=== PATIENT | male | born 1960 ===

== ENCOUNTER 2016-11-04 20:44 | Emergency (ER) | payer MEDICARE ==
[2016-11-04 20:44] VITALS: BMI 27.6
[2016-11-04 20:48] VITALS: BP 124/82; PULSE 98; RESP 18; TEMP 98; O2SAT 100
--- NOTE | 2016-11-04 21:22 | ED PDOC ---
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 Pt admits to drinking 7 beers and vodka. Offers no active complaints. No suicidal or homicidal ideation. Past Medical History Reviewed: Historical Data, Nursing Documentation, Vital Signs Vital Signs: Last Vital Signs Temp 98 F 11/04/16 20:46 Pulse 98 H 11/04/16 20:46 Resp 18 11/04/16 20:46 BP 124/82 11/04/16 20:46 Pulse Ox 100 11/04/16 20:46 - Medical History PMH: Anxiety (ABOUT VISION), Gastritis - Family History Family History: States: Unknown Family Hx - Home Medications Home Medications: Ambulatory Orders Medication Instructions Recorded No Known Home Med 09/17/15 - Allergies Allergies/Adverse Reactions: Allergies Allergy/AdvReac Type Severity Reaction Status Date / Time No Known Allergies Allergy Verified 09/17/15 12:00 Review of Systems ROS Statement: Except As Marked, All Systems Reviewed And Found Negative Eyes: Positive for: Other (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 Negative for: Suicidal ideation Physical Exam - Reviewed Nursing Documentation Reviewed: Yes Vital Signs Reviewed: Yes - Physical Exam Appears: Positive for: Well, Non-toxic, No Acute Distress Head Exam: Positive for: ATRAUMATIC, NORMAL INSPECTION, NORMOCEPHALIC Skin: Positive for: Normal Color, Warm Eye Exam: Negative for: Normal appearance (constricted, s/p surgery) ENT: Positive for: Normal ENT Inspection Neck: Positive for: Normal Cardiovascular/Chest: Positive for: Regular Rate, Rhythm Respiratory: Positive for: Normal Breath Sounds Neurologic/Psych: Positive for: Alert, Oriented, Gait (unsteady). Negative for : Motor/Sensory Deficits - ECG O2 Sat by Pulse Oximetry: 100 (RA) Pulse Ox Interpretation: Normal Medical Decision Making Medical Decision Making: Time: 2054 Impression: alcohol ingestion Plan: -- Observation for clinical sobriety -- Alcohol serum Reassess Scribe Attestation: Documented by Nataly Simon acting as a scribe for Brayan Barnes MD. Provider Attestation: All medical record entries made by the Scribe were at my direction and personally dictated by me. I have reviewed the chart and agree that the record accurately reflects my personal performance of the history, physical exam, medical decision making, and the department course for this patient. I have also personally directed, reviewed, and agree with the discharge instructions and disposition. ED OBSERVATION Date of observation admission: 11/04/16 Time of observation admission: 21:19 - Observation admission statement Patient is being placed in observation because:: Pt intoxicated - Goals of Observation Goals of observation are:: Awaiting clinical sobriety - Progress Note Progress Note: 11/04/16 21:41 Pt is alert and oriented x 3 with steady gait. Appears sober, ready for d/c home. Disposition - Clinical Impression Clinical Impression: Alcohol abuse - Disposition Referrals: Alcoholics Anonymous [Outside] Disposition Time: 21:19 Condition: STABLE Instructions: Abuse of Alcohol (ED)
== END 2016-11-04 21:43 | disposition home or self-care (01) ==
LOC: H.ER 20:44
DX: F10.10 Alcohol abuse, uncomplicated (principal)

== ENCOUNTER 2017-06-05 03:03 | Emergency (ER) | payer MEDICARE, OTHER ==
[2017-06-05 03:03] VITALS: BMI 27.6
[2017-06-05 03:19] VITALS: BP 131/77; PULSE 98; RESP 18; TEMP 98; O2SAT 100
[2017-06-05] MEDS ORDERED: Artificial Tears Opht Soln OU STA (03:22)
--- NOTE | 2017-06-05 03:46 | ED PDOC ---
HPI: Eye Injury/Pain Time Seen by Provider: 06/05/17 03:08 Chief Complaint (Nursing): Eye Problem Chief Complaint (Provider): Med Refill History Per: Patient History/Exam Limitations: no limitations Additional Complaint(s): Baldev is a 56 y/o male under arrest who was brought to the ED for medical clearance. Patient states he doesn't have access to his Visine which he needs due to cataract surgery in November of last year. He denies vision changes or any other complaints. PMD: None Provided Past Medical History Reviewed: Historical Data, Nursing Documentation, Vital Signs Vital Signs: Last Vital Signs Temp 98.0 F 06/05/17 03:08 Pulse 98 H 06/05/17 03:08 Resp 18 06/05/17 03:08 BP 131/77 06/05/17 03:08 Pulse Ox 100 06/05/17 03:08 - Medical History PMH: Anxiety (ABOUT VISION), Gastritis - Surgical History Other surgeries: Cataract surgery - Family History Family History: States: Unknown Family Hx - Home Medications Home Medications: Ambulatory Orders Medication Instructions Recorded No Known Home Med 09/17/15 - Allergies Allergies/Adverse Reactions: Allergies Allergy/AdvReac Type Severity Reaction Status Date / Time No Known Allergies Allergy Verified 09/17/15 12:00 Review of Systems ROS Statement: Except As Marked, All Systems Reviewed And Found Negative Eyes: Positive for: Other (out of visine). Negative for: Vision Change Physical Exam - Reviewed Nursing Documentation Reviewed: Yes Vital Signs Reviewed: Yes - Physical Exam Appears: Positive for: Well, Non-toxic, No Acute Distress Eye Exam: Positive for: Normal appearance, EOMI, PERRL, Conjunctival injection Extremity: Positive for: Normal ROM Neurologic/Psych: Positive for: Alert, Oriented - ECG O2 Sat by Pulse Oximetry: 100 (RA) Pulse Ox Interpretation: Normal Medical Decision Making Medical Decision Making: Time: 3:22 Initial Impression: Dry Eye Initial Plan: --Artificial Tears --Patient is stable and medically cleared for incarceration. Scribe Attestation: Documented by Faizan Kelly, acting as a scribe for Dr. Brayan Barnes MD Provider Scribe Attestation: All medical record entries made by the Scribe were at my direction and personally dictated by me. I have reviewed the chart and agree that the record accurately reflects my personal performance of the history, physical exam, medical decision making, and the department course for this patient. I have also personally directed, reviewed, and agree with the discharge instructions and disposition. Disposition - Clinical Impression Clinical Impression: Dry eye - Patient ED Disposition Is Patient to be Admitted: No Counseled Patient/Family Regarding: Studies Performed, Diagnosis, Rx Given - Disposition Referrals: [facility] [Outside] Roger Chatterjee MD [Staff Provider] - Disposition Time: 03:22 Condition: STABLE Additional Instructions: Patient is medically and psychiatrically cleared for incarceration. Instructions: Eye Lubricant (Into the eye) Forms: [facility] (Welsh)
== END 2017-06-05 05:18 ==
LOC: H.ER 03:03
DX: Z76.0 Encounter for issue of repeat prescription; F41.9 Anxiety disorder, unspecified; H04.129 Dry eye syndrome of unspecified lacrimal gland

== ENCOUNTER 2017-07-10 20:59 | Emergency (ER) | payer MEDICARE, OTHER ==
[2017-07-10 20:59] VITALS: BMI 27.6
[2017-07-10 21:05] VITALS: BP 140/84; PULSE 95; RESP 16; TEMP 98.4
[2017-07-10 21:23] VITALS: O2SAT 100
--- NOTE | 2017-07-10 21:59 | ED PDOC ---
HPI: Psych/Substance Abuse Time Seen by Provider: 07/10/17 21:11 Chief Complaint (Nursing): Alcohol Ingestion Chief Complaint (Provider): Alcohol Ingestion History Per: Patient History/Exam Limitations: no limitations Suicide/Self Injury Attempted (Context): None Modifying Factor(s): Alcohol Additional Complaint(s): 56 year old male brought in by EMS presents to ED for alcohol intoxication and has a history of alcohol abuse. Patient confirms he has had 10-15 alcoholic drinks since this morning. Denies drug abuse. Confirms that he feels intoxicated but denies having any complaints at this time. (-) chest pain or SOB. PCP: [facility] Past Medical History Reviewed: Historical Data, Nursing Documentation, Vital Signs Vital Signs: Last Vital Signs Temp 98.4 F 07/10/17 21:00 Pulse 95 H 07/10/17 21:00 Resp 16 07/10/17 21:00 BP 140/84 07/10/17 21:00 Pulse Ox 100 07/10/17 21:20 - Medical History PMH: Anxiety (ABOUT VISION), Gastritis - Family History Family History: States: Unknown Family Hx - Social History Alcohol: Social - Immunization History Hx Tetanus Toxoid Vaccination: No Hx Influenza Vaccination: No Hx Pneumococcal Vaccination: No - Home Medications Home Medications: Ambulatory Orders Medication Instructions Recorded No Known Home Med 09/17/15 - Allergies Allergies/Adverse Reactions: Allergies Allergy/AdvReac Type Severity Reaction Status Date / Time No Known Allergies Allergy Verified 07/08/17 13:07 Review of Systems ROS Statement: Except As Marked, All Systems Reviewed And Found Negative ( Denies all physical complaints) Cardiovascular: Negative for: Chest Pain Respiratory: Negative for: Shortness of Breath Physical Exam - Reviewed Nursing Documentation Reviewed: Yes Vital Signs Reviewed: Yes - Physical Exam Appears: Positive for: Non-toxic, No Acute Distress (Slightly intoxicated appearing) Skin: Positive for: Normal Color Eye Exam: Positive for: Normal appearance Cardiovascular/Chest: Positive for: Regular Rate, Rhythm. Negative for: Murmur Respiratory: Negative for: Respiratory Distress Gastrointestinal/Abdominal: Positive for: Soft. Negative for: Tenderness Neurologic/Psych: Positive for: Alert, Oriented (x3), Gait (steady) - ECG O2 Sat by Pulse Oximetry: 100 (RA) Pulse Ox Interpretation: Normal Medical Decision Making Medical Decision Makin Initial impression: EtOH intoxication Initial plan: Patient will be discharged home. Advised against alcohol abuse. Scribe Attestation: Documented by Brittney Rajan acting as a scribe Brayan Barnes MD. MD Thayer[place]andee Attestation: All medical record entries made by the Scribe were at my direction and personally dictated by me. I have reviewed the chart and agree that the record accurately reflects my personal performance of the history, physical exam, medical decision making, and the department course for this patient. I have also personally directed, reviewed, and agree with the discharge instructions and disposition. Disposition - Clinical Impression Clinical Impression: Alcohol use - Disposition Referrals: Alcoholics Anonymous [Outside] Disposition: Routine/Home Disposition Time: 21:30 Condition: STABLE Instructions: Alcohol Use - When Is Drinking a Problem? Forms: [facility] (Serbian)
== END 2017-07-10 21:47 | disposition home or self-care (01) ==
LOC: H.ER 20:59
DX: F10.129 Alcohol abuse with intoxication, unspecified (principal); F41.9 Anxiety disorder, unspecified